=== PATIENT | female | born 1985 | race Hispanic/Latino ===

== ENCOUNTER 2024-12-18 14:34 | Emergency (ER) | payer SELFPAY ==
[2024-12-18] MEDS ORDERED: Ketorolac Tromethamine 30 MG (1 mL) VIAL ONE (15:41)
== END 2024-12-18 16:17 | disposition home or self-care (01) ==
LOC: CSHERS 14:34
DX: M25.461 Effusion, right knee (principal); M21.061 Valgus deformity, not elsewhere classified, right knee
CPT/HCPCS: J1885

== ENCOUNTER 2024-12-23 22:46 | Emergency (ER) | payer SELFPAY ==
[2024-12-23] MEDS ORDERED: HYDROcodone/Acetaminophen 5/325 mg Tablet ONE (23:43)
== END 2024-12-23 23:54 | disposition home or self-care (01) ==
LOC: CSHERS 22:46
DX: M25.561 Pain in right knee (principal)
CPT/HCPCS: 99283